=== PATIENT | female | born 1990 ===

== ENCOUNTER 2018-09-23 21:22 | Emergency (ER) | payer SELFPAY ==
[2018-09-23] MEDS ORDERED: Tdap Vaccine 0.5 ml Vial (10-64 yrs) IM ONE (22:10)
--- NOTE | 2018-09-23 22:20 | ED PDOC ---
Upper Extremity Pain/Injury Time Seen by Provider: 09/23/18 21:41 Chief Complaint (Nursing): Finger,Hand,&Wrist Chief Complaint (Provider): Finger Laceration History Per: Patient History/Exam Limitations: no limitations Onset/Duration Of Symptoms: Hrs (1) Current Symptoms Are (Timing): Still Present Severity: Mild Pain Scale Rating Of: 4 Additional Complaint(s): Patient is a 28 year old female with no past medical history who presents for wound evaluation. Patient reports that 1 hour prior to arrival she was cutting an apple at home when she accidentally cut her left 5th digit. Patient reports mild, localized pain to the laceration site. 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 No other complaints at present. Patient is right hand dominant. PMD: None Tetanus: Not UTD Past Medical History Reviewed: Historical Data, Nursing Documentation, Vital Signs Vital Signs: Last Vital Signs Temp 99 F 09/23/18 21:41 Pulse 83 09/23/18 21:41 Resp 16 09/23/18 21:41 BP 131/90 09/23/18 21:41 Pulse Ox 99 09/23/18 21:41 - Medical History PMH: No Chronic Diseases - Surgical History Surgical History: No Surg Hx - Family History Family History: States: Unknown Family Hx - Living Arrangements Living Arrangements: With Family - Immunization History Hx Tetanus Toxoid Vaccination: No (not UTD) - Home Medications Home Medications: Ambulatory Orders Medication Instructions Recorded Bacitracin Ointment [Bacitracin] 1 applic TOP BID #1 tube 09/23/18 Naproxen 500 mg PO BID PRN #20 tab 09/23/18 - Allergies Allergies/Adverse Reactions: Allergies Allergy/AdvReac Type Severity Reaction Status Date / Time No Known Allergies Allergy Verified 09/23/18 21:39 Review of Systems ROS Statement: Except As Marked, All Systems Reviewed And Found Negative Skin: Positive for: Other (laceration to left 5th digit) Physical Exam - Reviewed Nursing Documentation Reviewed: Yes Vital Signs Reviewed: Yes - Physical Exam Appears: Positive for: Well, Non-toxic, No Acute Distress Head Exam: Positive for: ATRAUMATIC, NORMOCEPHALIC ENT: Positive for: Other (Mucus membranes moist. Airway patent, (-) stridor.) Neck: Positive for: Painless ROM, Supple Cardiovascular/Chest: Positive for: Regular Rate, Rhythm Respiratory: Positive for: Normal Breath Sounds. Negative for: Accessory Muscle Use, Respiratory Distress Extremity: Positive for: Normal ROM (of all digits, left hand, and left wrist. Remainder of upper extremity nontender with FROM.), Tenderness (minimal to laceration site), Capillary Refill (<2 seconds), Other (.75cm superficial, horizontal abrasion to the palmar aspect of the middle phalanx of the left 5th digit). Negative for: Deformity, Swelling Neurologic/Psych: Positive for: Alert, Oriented (x3), Gait (steady in ED). Negative for: Aphasia, Facial Droop - ECG O2 Sat by Pulse Oximetry: 99 (RA) Pulse Ox Interpretation: Normal Medical Decision Making Medical Decision Making: Initial Impression: Finger Laceration Plan: -Tetanus IM -Wound irrigated with normal saline an explored. No FB or deep structure involvement. Wound closed with Dermabond. See procedure note. 2320 On re-evaluation, patient reports improvement of symptoms. On exam, patient remains AAOx3, in no acute distress. Lungs clear to auscultation, cardiac RRR, repeat neuro exam shows no focal findings. Vitals stable. Educated on wound care. Lab/Diagnostic results d/w the patient in great detail. Diagnosis of finger laceration d/w the patient. Based on history, exam and diagnostic results, plan will be for outpatient follow up with PMD/clinic. Patient instructed to follow-up with pmd / referral provided / the clinic in 1- 2 days without fail. Advised to take medication as prescribed. Return to the emergency room at any time for any new or worsening symptoms. Patient states she fully agrees with and understands discharge instructions. States that she agrees with the plan and disposition. Verbalized and repeated discharge instructions and plan. I have given the patient opportunity to ask any additional questions. Procedures - Laceration/Wound Repair Left 5th Digit Wound Length (cm): 0.75 Wound's Depth, Shape: superficial, linear (horizontal) Wound Explored: clean Irrigated w/ Saline (ccs): 100 Betadine Prep?: No Wound Repaired With: Skin adhesive Wound Complexity: Simple Progress: Patient tolerated procedure well. Educated on adhesive wound care. Disposition - Clinical Impression Clinical Impression: Finger laceration - Patient ED Disposition Is Patient to be Admitted: No Counseled Patient/Family Regarding: Studies Performed, Diagnosis, Need For Followup, Rx Given - Disposition Referrals: [facility] [Outside] Disposition: Routine/Home Disposition Time: 23:20 Condition: STABLE Additional Instructions: Delfina vez que se caiga el adhesivo, mantenga la herida limpia y seca. Aplicar la pomada antibitica prescrita dos veces al da. La atencin mdica de emergencia que recibi hoy se dirigi a mila sntomas agudos. Si le recetaron algn medicamento, llnelo y tmelo segn las indicaciones. Los sntomas pueden tardar varios dallas en resolverse. Regrese al Departamento de Emergencias si mila sntomas empeoran, no mejoran o si tiene otros problemas. Comunquese con man mdico dentro de 2 dallas para delfina nueva evaluacin y rick un seguimiento o llame a yessenia de los mdicos / clnicas a los que shoemaker sido referido y que figuran en el formulario de Informacin de visita al paciente que se incluye en man paquete de blanca. Lleve con usted a man consulta de seguimiento toda la documentacin que recibi del blanca junto con los medicamentos que est tomando. Nuestro tratamiento no puede reemplazar la atencin mdica continua por parte de un proveedor de atencin primaria (PCP) fuera del departamento de emergencias. Prescriptions: Bacitracin Ointment [Bacitracin] 1 applic TOP BID #1 tube Naproxen 500 mg PO BID PRN #20 tab PRN Reason: Pain, Moderate (4-7) Instructions: Laceration Repair With Glue (DC), Common Finger Injuries, Wound Care, Skin Abrasions Forms: [employer] (Upper Sorbian) Print Language: ICELANDIC - POA Present On Arrival: None
[2018-09-24 01:20] VITALS: BP 131/90; PULSE 83; RESP 16; TEMP 99; O2SAT 99
== END 2018-09-23 23:40 | disposition home or self-care (01) ==
LOC: H.ER 21:22
DX: S61.307A Unspecified open wound of left little finger with damage to nail, initial encounter (principal); W26.0XXA Contact with knife, initial encounter; Y92.89 Other specified places as the place of occurrence of the external cause